=== PATIENT | male | born 1950 | race Caucasian/White ===

== ENCOUNTER → 2018-11-02 11:27 | Outpatient (CLI) | payer OTHER, SELFPAY ==
--- NOTE | 2018-11-02 | DI.US.S_ITS ---
PROCEDURE: US SCROTUM INDICATIONS: LEFT TESTICULAR PAIN TECHNIQUE: Real-time scanning was performed of the scrotum and testicles, with image documentation. Color and pulse Doppler interrogation was performed of both testicles. COMPARISON: None. FINDINGS: Right: Testicle is normal in size at 4.7 x 2.5 x 3.3 cm, and homogenous in echotexture. Epididymis is normal in overall size and morphology. Small right hydrocele is seen. No varicoceles. Overlying scrotal skin is normal in thickness. Left: Testicle is normal in size at 4.5 x 2.5 x 3.5 cm, and is heterogeneous in echotexture. 6 mm calcification is noted in the lateral aspect of left testes. A few tiny microcalcifications also seen in left testicular parenchyma. 4 mm left epididymal head cyst is seen. 1.6 x 0.7 x 0.3 cm left epididymal body cysts is also seen. There is small amount of hydrocele. No varicoceles. Overlying scrotal skin is normal in thickness. Doppler: Color and pulse Doppler demonstrate normal and symmetric arterial flow in both testicles. IMPRESSION: 1. Mildly heterogeneous left testicular parenchyma. No discrete solid-appearing testicular lesion is seen. Several tiny left testicular parenchymal calcifications which may represent prior injury/infection. No evidence of testicular torsion. 2. Normal appearing right testes. 3. Small bilateral hydrocele. Left epididymal cysts as above. Dictated by: Cedric Vásquez M.D. on 11/02/2018 at 13:36 Approved by: Cedric Vásquez M.D. on 11/02/2018 at 13:45
== END ==
PROVIDERS: Visit Provider Physician Assistant
DX: N50.812 Left testicular pain (principal); N43.3 Hydrocele, unspecified; N50.3 Cyst of epididymis
CPT/HCPCS: 76870